=== PATIENT | male | born 1955 | race Caucasian/White ===

== ENCOUNTER 2019-04-05 16:13 | Emergency (ER) | payer OTHER | END 2019-04-05 20:20 | disposition home or self-care (01) | LOC: FTE 16:13 | DX: S52.501A Unspecified fracture of the lower end of right radius, initial encounter for closed fracture (principal); E11.9 Type 2 diabetes mellitus without complications; W18.39XA Other fall on same level, initial encounter; Y92.9 Unspecified place or not applicable | CPT/HCPCS: 29125; 99283-25 ==